=== PATIENT | male | born 1970 | race Hispanic/Latino ===

== ENCOUNTER 2019-10-30 14:47 | Outpatient (CLI) | payer OTHER ==
--- NOTE | 2019-10-30 16:06 | ULT ---
Exam: Bilateral renal ultrasound HISTORY: Bilateral flank pain, x1.5 months COMPARISON: None FINDINGS: Right kidney: Normal cortical echotexture. No hydronephrosis. Right kidney measurements: 4.9 x 5.0 x 10.1 cm. Left kidney: Normal cortical echotexture. No hydronephrosis Left kidney measurements 4.9 x 4.4 x 11.3 cm. Urinary bladder: Decompressed. Limiting evaluation. IMPRESSION: No hydronephrosis.
== END 2019-10-30 14:48 | disposition home or self-care (01) ==
LOC: NAV ULT 14:47
DX: R10.9 Unspecified abdominal pain (principal); R30.0 Dysuria
CPT/HCPCS: 76770

== ENCOUNTER 2024-04-11 11:20 | Outpatient (CLI) | payer OTHER | END 2024-04-11 11:21 | disposition home or self-care (01) | LOC: NAV RAD 11:20 | PROVIDERS: ATTEND Family Medicine | DX: U07.1 COVID-19 (principal); R05.9 Cough, unspecified | CPT/HCPCS: 71046 ==